=== PATIENT | female | born 1990 | race Caucasian/White ===

== ENCOUNTER → 2016-08-31 | Outpatient (CLI) | payer OTHER ==
--- NOTE | 2016-08-31 13:11 | US ---
MATERNAL ANATOMY Uterus: EXAMINATION TYPE: US OB >= 14 wk fetus DATE OF EXAM: 08/31/2016 12:40 PM COMPARISON: None CLINICAL HISTORY: Z34.00 normal first , unspec Trimester; smoker, for dates TECHNIQUE: Transabdominal (TA) GESTATIONAL AGE / DATING Physician Established: not established Dates by LMP: (16 weeks/1 day) EDC: 02/14/2017 Dates by First Scan: today Dates by Current Scan: (15 weeks/2 days) EDC: 02/20/2017 SURVEY IUP: Single PLACENTA: Anterior PREVIA: Low Lying and is early 2nd trimester DAYSI: not measured until 16 weeks or > CERVICAL LENGTH (transabdominal: norm > 3.0cm): 3.2 cm BIOMETRY PRESENTATION: Vertex LIE: Oblique BPD: 3.0 cm 15 weeks / 4 days HC: 10.8 cm 15 weeks / 1 day AC: 9.4 cm 15 weeks / 4 days FL: 1.6 cm 14 weeks / 5 days ESTIMATED WEIGHT IN GRAMS: 116.7 grams ESTIMATED WEIGHT IN LBS/OZ: 0 lbs. 4 oz. WEIGHT PERCENTAGE BASED ON ESTABLISHED DATES: 3.8% based on LMP HC/AC: 1.15 Normal FL/AC: 17.2 Normal HEART RATE: 151 bpm RHYTHM: Normal TECHNOLOGIST IMPRESSION: Single, live, IUP,15 weeks/2 days), EDC: 02/20/2017; HR 151bpm. Single live intrauterine gestation is confirmed as gestational sac and pole are seen. Yolk sac is not clearly identified. biometry measurements are within normal limits for early second trim paul except for estimated weight which is estimated just below normal range. Conside r short-term ultrasound follow-up. Detailed anatomical survey not performed due to early second trime ster gestation currently. IMPRESSION: As above.
== END | disposition home or self-care (01) ==
LOC: RADUSWWP 12:04
PROVIDERS: ATTEND Obstetrics & Gynecology
DX: Z34.00 Encounter for supervision of normal first pregnancy, unspecified trimester (principal); Z3A.15 15 weeks gestation of pregnancy
CPT/HCPCS: 76805